=== PATIENT | female | born 1990 | race Caucasian/White ===

== ENCOUNTER 2018-11-18 07:13 | Emergency (ER) | payer OTHER ==
[~2018-11-18 07:13] MED LIST: ACET325 PO; ALBU90OI INH; ALBU90OI61 INH; AMOX500 PO; Acetaminophen-1 EAC1 PO; Amoxicillin500 MG PO; Bactrim Ds Tab1 EACH PO; CEPH500 PO; CLIN300 PO; CODACE30 PO; CYAN100 PO; CYCL10 PO; DOXY100 PO; FAMO20 PO; FERSU220EL PO; FOLI1 PO; HYDACE5 PO; HYDGUAL120 PO; Hydrocodone-Ap1 EA23 PO; IBUP600 PO; IUD; LORA1 PO; MEDR150I IM; METPRE4DP PO; METR70GEL VAG; MULVITMINE; NAPR500 PO; OXYACE5T PO; PARO25 PO; PENVK500 PO; PHENA200 PO; PROACE100 PO; PRODEXEL PO; PROM25 PO; RXCYCL10 PO; RXOXYACE PO; RXPROACE PO; RXTRAM50 PO; SULTRIDS PO; TRAACE PO; TRAM50 PO; Veetids 500500 MG PO; Verotin-Gr Cap1 EACH PO; Zofran4 MG PO; [UNRECOGNIZED DRUG - OTHER]
== END 2018-11-18 07:40 | disposition left against medical advice (07) ==
LOC: ER 07:13
DX: Z53.21 Procedure and treatment not carried out due to patient leaving prior to being seen by health care provider (principal)

== ENCOUNTER 2018-12-15 15:14 | Emergency (ER) | payer OTHER ==
[~2018-12-15] VITALS: Ht 167.6 cm; Wt 56.7 kg
[2018-12-15] MEDS ORDERED: KETO10 PO (15:40)
[2018-12-15] MEDS ORDERED: Augmentin 875-1 EACH PO (15:40)
== END 2018-12-15 15:55 | disposition home or self-care (01) ==
LOC: ER 15:14
DX: M27.63 Post-osseointegration mechanical failure of dental implant (principal); Z79.899 Other long term (current) drug therapy; J45.909 Unspecified asthma, uncomplicated; F17.200 Nicotine dependence, unspecified, uncomplicated
CPT/HCPCS: 64400; 99283-25

== ENCOUNTER 2019-03-01 01:02 | Emergency (ER) | payer OTHER ==
[~2019-03-01] VITALS: Ht 167.6 cm; Wt 54.4 kg
[~2019-03-01 01:02] MED LIST changes: +Augmentin 875-1 EACH PO; +KETO10 PO
[2019-03-01] MEDS ORDERED: IBUP400 PO (02:24)
[2019-03-01] MEDS ORDERED: Vibramycin100 MG PO (02:24)
== END 2019-03-01 02:34 | disposition home or self-care (01) ==
LOC: ER 01:02
DX: H66.42 Suppurative otitis media, unspecified, left ear (principal); J45.909 Unspecified asthma, uncomplicated; F17.200 Nicotine dependence, unspecified, uncomplicated; Z79.899 Other long term (current) drug therapy
CPT/HCPCS: 99282